=== PATIENT | female | born 1985 | race Two or more races ===

== ENCOUNTER 2019-03-12 10:05 | Emergency (ER) | payer MEDICAID ==
[~2019-03-12] VITALS: Ht 162.6 cm; Wt 81.6 kg
[2019-03-12 10:26] VITALS: BP 148/66
[2019-03-12] MEDS ORDERED: traMADol HCL 50 MG TAB PO ONE (11:00)
== END 2019-03-12 12:13 | disposition home or self-care (01) ==
LOC: ER 10:05
DX: G43.909 Migraine, unspecified, not intractable, without status migrainosus (principal); R11.2 Nausea with vomiting, unspecified; H53.8 Other visual disturbances; Z98.51 Tubal ligation status
CPT/HCPCS: 70450

== ENCOUNTER 2021-03-22 09:14 | Emergency (ER) | payer MEDICAID ==
[~2021-03-22] VITALS: Ht 162.6 cm; Wt 81.6 kg
[2021-03-22 10:07] LABS: Urine Bacteria FEW /hpf (None Seen); Urine Blood 1+ /uL (Negative); Urine Mucus FEW (None Seen); Urine WBC 1 /hpf (0 - 5)
[2021-03-22 10:42] LABS: Basophils # (auto) 0.1 10 ^3/uL (0-0.2); Basophils % (auto) 0.6 % (0.0-2.0); Eosinophils # (auto) 0.2 10 ^3/uL (0-0.8); Hematocrit 41.9 % (36.0-46.0); Hemoglobin 14.1 g/dL (12.2-16.2); Lymphocytes # (auto) 1.6 10 ^3/uL (0.4-5.4); Lymphocytes % (auto) 16.3 % (10.0-50.0); Mean Corpuscular Hgb Conc. 33.6 g/dL (32.0-36.0); Mean Corpuscular Volume 86.4 fL (80.0-100.0); Monocytes # (auto) 0.5 10 ^3/uL (0-1.3); Monocytes % (auto) 5.2 % (0.0-12.0); Neutrophils # (auto) 7.7 10 ^3/uL (1.6-8.6); Neutrophils % (auto) 75.9 % (37.0-80.0); Nucleated Red Blood Cells % 0.1 %; Red Blood Cells 4.85 10^6/uL (4.0-5.20); Red Cell Distribution Width 13.9 % (11.8-14.3); White Blood Cell 10.1 10^3/uL (4.4-10.8)
[2021-03-22 10:55] LABS: Albumin 3.7 g/dL (3.4-5.0); Potassium 3.5 mmol/L (3.5-5.1)
[2021-03-22 10:58] LABS: BUN/Creatinine Ratio 14.1; Bilirubin, Total 0.5 mg/dL (0.2-1.0); Total Protein 7.6 g/dL (6.4-8.2)
[2021-03-22] MEDS ORDERED: PERCOT PO (11:44)
[2021-03-22] MEDS ORDERED: NITR-87 PO (11:44)
[2021-03-22] MEDS ORDERED: ONDA-144 PO (11:44)
[2021-03-22 11:52] VITALS: BP 122/75
== END 2021-03-22 11:53 | disposition home or self-care (01) ==
LOC: ER 09:14
DX: K80.20 Calculus of gallbladder without cholecystitis without obstruction (principal); R30.0 Dysuria
CPT/HCPCS: 36415; 74176; 80053; 81001; 82150; 83690; 85025

== ENCOUNTER 2021-07-14 19:40 | Emergency (ER) | payer MEDICAID, OTHER ==
[~2021-07-14] VITALS: Ht 162.6 cm; Wt 81.6 kg
[~2021-07-14 19:40] MED LIST: NITR-87 PO; ONDA-144 PO; PERCOT PO
[2021-07-14 19:48] VITALS: BP 121/72
[2021-07-14] MEDS ORDERED: KETOROLAC TROMETH 60MG/2ML VIAL IM ONE (20:45)
== END 2021-07-14 21:28 | disposition home or self-care (01) ==
LOC: ER 19:40
DX: M54.50 Low back pain, unspecified (principal); M79.18 Myalgia, other site; Z98.51 Tubal ligation status; V43.62XA Car passenger injured in collision with other type car in traffic accident, initial encounter; Y93.89 Activity, other specified; Y92.488 Other paved roadways as the place of occurrence of the external cause; Y99.8 Other external cause status
CPT/HCPCS: 96372; 99283; J1885

== ENCOUNTER 2023-07-31 13:14 | Emergency (ER) | payer MEDICAID ==
[~2023-07-31] VITALS: Ht 162.6 cm; Wt 80.1 kg
[2023-07-31 14:41] LABS: Urine Bacteria FEW /hpf (None Seen); Urine Blood 3+ /uL (Negative); Urine Clarity HAZY (Clear); Urine Color Yellow (Yellow); Urine Mucus FEW (None Seen); Urine Protein, UAD 1+ (Negative); Urine Urobilinogen Normal (Negative); Urine WBC 41 /hpf (0 - 5); Urine pH 5.5 (5.0-8.0)
[2023-07-31 15:55] LABS: Basophils # (auto) 0 10 ^3/uL (0-0.2); Basophils % (auto) 0.2 % (0.0-2.0); Eosinophils # (auto) 0.1 10 ^3/uL (0-0.8); Eosinophils % (auto) 2.1 % (0.0-7.0); Hematocrit 43.8 % (36.0-46.0); Hemoglobin 14.6 g/dL (12.2-16.2); Lymphocytes # (auto) 1.3 10 ^3/uL (0.4-5.4); Lymphocytes % (auto) 19.3 % (10.0-50.0); Mean Corpuscular Hemoglobin 29.1 pg (28.0-32.0); Mean Corpuscular Hgb Conc. 33.3 g/dL (32.0-36.0); Mean Corpuscular Volume 87.6 fL (80.0-100.0); Monocytes # (auto) 0.7 10 ^3/uL (0-1.3); Monocytes % (auto) 10.6 % (0.0-12.0); Neutrophils # (auto) 4.5 10 ^3/uL (1.6-8.6); Neutrophils % (auto) 67.8 % (37.0-80.0); Nucleated Red Blood Cells % 0.1 %; Red Cell Distribution Width 13.8 % (11.8-14.3); White Blood Cell 6.6 10^3/uL (4.4-10.8)
[2023-07-31] MEDS ORDERED: CEPH500C PO (16:01)
[2023-07-31 16:10] LABS: Albumin 4.5 g/dL (3.2-4.8); Alkaline Phosphatase 86 U/L (46-116); Anion Gap 6 (5-15); Aspartate Aminotransferase 11 U/L (13-40); Bilirubin, Total 0.5 mg/dL (0.2-1.0); Blood Urea Nitrogen 12 mg/dL (9-23); Calcium 9.4 mg/dL (8.5-10.1); Carbon Dioxide 26 mmol/L (20-30); Chloride 108 mmol/L (98-107); Glucose 83 mg/dL (74-106); Sodium 140 mmol/L (136-145); Total Protein 7.3 g/dL (5.7-8.2)
[2023-07-31 16:14] LABS: INR 1.04 (0.9-1.15); Partial Thromboplastin Time 29.7 SEC (24.5-34.5); Prothrombin Time 10.9 sec (9.3-11.8)
[2023-07-31 16:16] LABS: Alanine Aminotransferase < 9 U/L (7-40)
[2023-07-31] MEDS ORDERED: IBUP1TAB5 PO (18:21)
[2023-07-31] MEDS ORDERED: ACET-1304 PO (18:21)
[2023-07-31] MEDS: cefTRIAXone SOD 1,000 MG VL IM ONE (20:45)
[2023-07-31] MEDS: LIDOCAINE 1% HCL (LOCAL ANESTH.) INJ 20ML MDV ONE (20:55)
[2023-07-31] MEDS: cefTRIAXone 1GM/50ML D5W 50 ML IV ONE (20:55)
[2023-07-31 21:00] VITALS: BP 107/65; PULSE 75; RESP 20; TEMP 98.9; O2SAT 97
== END 2023-07-31 21:00 | disposition home or self-care (01) ==
LOC: ER 13:14
DX: N39.0 Urinary tract infection, site not specified (principal); R10.2 Pelvic and perineal pain; Z79.899 Other long term (current) drug therapy
CPT/HCPCS: 36415; 74176; 76856; 80053; 81001; 84702; 85025; 85610; 85730; 96372; 99285; J0696; J2001